=== PATIENT | female | born 1950 | race Two or more races ===

== ENCOUNTER 2022-06-22 08:00 | Inpatient (IN) | payer OTHER ==
[~2022-06-22] VITALS: Ht 152.4 cm; Wt 69.4 kg
[2022-06-22] MEDS ORDERED: CRESTOR20 MG PO (11:55)
[2022-06-22] MEDS ORDERED: NORVASC5 MG PO (11:55)
[2022-06-22] MEDS ORDERED: ATACAND HCT 161 EACH PO (11:55)
[2022-06-22] MEDS ORDERED: ZYRTEC10 M3 PO (11:55)
[2022-06-26] MEDS ORDERED: CLOTRIMAZOLE-BE15 G1 (10:30)
[2022-06-26] MEDS ORDERED: LIDOCAINE HCL120 GM (10:30)
[2022-06-26] MEDS ORDERED: LATANOPROST2.5 ML (10:30)
[2022-06-26] MEDS ORDERED: ALLOPURINOL300 MG (10:30)
[2022-06-26] MEDS ORDERED: EMERGEN-C 1,01000 MG (10:31)
[2022-06-28] MEDS ORDERED: XARELTO10 MG PO (06:21)
[2022-06-28] MEDS ORDERED: INTEGRA PLUS C1 EACH PO (06:21)
[2022-06-28] MEDS ORDERED: BACTRIM DS TAB1 EACH PO (06:21)
[2022-06-28] MEDS ORDERED: OXYC1TAB9 PO (06:21)
== END 2022-06-28 18:14 | disposition home or self-care (01) | DRG 470 ==
LOC: O/R 06-26 06:28 → SURH 06-26 06:28
PROVIDERS: ADMIT Orthopaedic Surgery Sports Medicine; ATTEND Orthopaedic Surgery Sports Medicine
PROC: 0SRC0J9 Replacement of Right Knee Joint with Synthetic Substitute, Cemented, Open Approach (ICD-10-PCS; principal; 2022-06-26 13:30)
DX: M17.11 Unilateral primary osteoarthritis, right knee (principal); Z96.651 Presence of right artificial knee joint; I10 Essential (primary) hypertension; Z20.822 Contact with and (suspected) exposure to COVID-19